=== PATIENT | male | born 1950 | race Asian ===

== ENCOUNTER 2020-09-07 10:56 | Inpatient (IN) | payer OTHER ==
[2020-09-07 12:28] LABS: BASO % 0.5 % (0-2.0); EOS % 0.1 % (0-4.5); HEMATOCRIT 31.9 % (35.4-49); HEMOGLOBIN 10.2 GM/dL (11.7-16.9); LYMPH % 9.3 % (8-40); MCH 24.4 pg (25.7-33.7); MCHC 31.9 g/dl (32.0-35.9); MEAN CELL VOLUME 76.6 fl (80-96); MEAN PLT VOLUME 8.7 fl (7.5-11.1); MONO % 36.1 % (3.8-10.2); PLATELET COUNT 81 10^3/uL (134-434); RBC 4.17 M/mm3 (4.00-5.60); RDW 27.9 % (11.9-15.9)
[2020-09-07 12:35] LABS: INR 1.12 (0.83-1.09); PROTHROMBIN TIME (PATIENT) 13.7 SEC (9.7-13.0)
[2020-09-07 12:37] LABS: ACTIVATED PTT 27.2 SECONDS (25.2-36.5)
[2020-09-07 12:51] LABS: CHLORIDE 106 mmol/L (98-107); SODIUM 140 mmol/L (136-145)
[2020-09-07 12:53] LABS: ANION GAP 10 MMOL/L (8-16); BLOOD UREA NITROGEN 25.6 mg/dL (7-18); CALCIUM 10.9 mg/dL (8.5-10.1); CO2 24 mmol/L (21-32)
[2020-09-07 12:54] LABS: ALBUMIN 2.3 g/dl (3.4-5.0); GLUCOSE,RANDOM 110 mg/dL (74-106); MAGNESIUM 2.1 mg/dL (1.8-2.4)
[2020-09-07 12:57] LABS: SGPT/ALT 16 U/L (13-61)
[2020-09-07 12:58] LABS: BILIRUBIN,TOTAL 0.4 mg/dL (0.2-1); TOT PROT 5.4 g/dl (6.4-8.2)
[2020-09-07 12:59] LABS: ANISOCYTOSIS 2+; MACROCYTOSIS 2+; OVALOCYTE 1+; PLATELET ESTIMATE DECREASED
[2020-09-07 13:00] LABS: ALK PHOS 98 U/L (45-117)
[2020-09-07 13:02] LABS: N-TERMINAL BNP 437.6 pg/ml (5-125); SGOT/AST 16 U/L (15-37)
[2020-09-07] MEDS ORDERED: PIPERACILLIN/TAZOB 4.5 GM 4.5 GM in DEXTROSE 5%-WATER 100 ML IVPB ONE (13:14)
[2020-09-07] MEDS ORDERED: VANCOMYCIN 1,000 MG in DEXTROSE 5%-WATER - 250 ML IVPB ONE (13:14)
[2020-09-07 13:51] LABS: URINE APPEARANCE CLEAR; URINE BILIRUBIN NEGATIVE (NEGATIVE); URINE COLOR YELLOW; URINE GLUCOSE (UA) 3+ (NEGATIVE); URINE KETONE NEGATIVE (NEGATIVE); URINE LEUK ESTERASE NEGATIVE (NEGATIVE); URINE NITRITE NEGATIVE (NEGATIVE); URINE PROTEIN NEGATIVE (NEGATIVE); URINE UROBILINOGEN 0.2 mg/dL (0.2-1.0)
[2020-09-07] MEDS ORDERED: PIPERACILLIN/TAZOB 4.5 GM 4.5 GM/100 ML BAG IVPB ONE (14:04)
[2020-09-07] MEDS ORDERED: VANCOMYCIN 1 GRAM (PRE-DOCKED) 1,000 MG/250 ML BAG IVPB ONE (14:05)
[2020-09-07] MEDS: INSULIN SLIDING SCALE (NOVOLOG) 1 VIAL SQ SCH ×2 (17:30→22:55)
[2020-09-07 21:17] LABS: URIC ACID 8.2 mg/dL (2.6-7.2)
[2020-09-07 21:18] LABS: PHOSPHOROUS 3.4 mg/dL (2.5-4.9)
[2020-09-07 21:19] LABS: LDH 259 U/L (87-246)
[2020-09-07 22:31] LABS: HEMOGLOBIN 10.2 GM/dL (11.7-16.9); MCH 24.6 pg (25.7-33.7); MEAN PLT VOLUME 9.4 fl (7.5-11.1); PLATELET COUNT 86 10^3/uL (134-434); RBC 4.16 M/mm3 (4.00-5.60); RDW 26.8 % (11.9-15.9); RETICULOCYTES 6.54 % (0.5-1.5); WHITE BLOOD COUNT 25.6 K/mm3 (4.0-10.0)
[2020-09-07] MEDS ORDERED: ATORVASTATIN CA 20 MG TABLET (FP) ONE (22:44)
[2020-09-07] MEDS ORDERED: GABAPENTIN 100 MG CAPSULE ONE (22:44)
[2020-09-07] MEDS: GABAPENTIN 300 MG CAPSULE PO SCH (22:50)
[2020-09-07] MEDS: ATORVASTATIN CA 20 MG TABLET (FP) PO SCH (22:50)
[2020-09-08] MEDS ORDERED: DEXTROSE 5%-WATER - 50 ML IVPB ONE ×3 (00:58→16:14)
[2020-09-08] MEDS ORDERED: PIPERACILLIN/TAZOBACTAM 3.375 GM VIAL IVPB ONE ×3 (00:58→16:14)
[2020-09-08] MEDS: PIPERACILLIN/TAZOB 3.375 GM 3.375 GM in DEXTROSE 5%-WATER - 50 ML IVPB SCH ×3 (01:26→18:49)
[2020-09-08] MEDS ORDERED: VANCOMYCIN 1 GM in D5W (PRE-DOCKED) 1,000 MG/250 ML IVPB SCH (03:00)
[2020-09-08 03:38] VITALS: BMI 19.8
[2020-09-08] MEDS: GABAPENTIN 300 MG CAPSULE PO SCH ×3 (06:24→21:33)
[2020-09-08] MEDS: INSULIN SLIDING SCALE (NOVOLOG) 1 VIAL SQ SCH ×4 (06:25→21:35)
[2020-09-08 06:52] LABS: HEMATOCRIT 30.5 % (35.4-49); HEMOGLOBIN 9.5 GM/dL (11.7-16.9); MCH 24.5 pg (25.7-33.7); MCHC 31.3 g/dl (32.0-35.9); MEAN CELL VOLUME 78.3 fl (80-96); MEAN PLT VOLUME 9.7 fl (7.5-11.1); PLATELET COUNT 71 10^3/uL (134-434); RBC 3.89 M/mm3 (4.00-5.60); RDW 27.4 % (11.9-15.9)
[2020-09-08 07:17] LABS: BLOOD UREA NITROGEN 26.9 mg/dL (7-18); CALCIUM 9.7 mg/dL (8.5-10.1)
[2020-09-08 07:18] LABS: MAGNESIUM 1.9 mg/dL (1.8-2.4)
[2020-09-08 07:20] LABS: CREATININE 1.3 mg/dL (0.55-1.3)
[2020-09-08 07:22] LABS: BILIRUBIN,TOTAL 0.8 mg/dL (0.2-1); TOT PROT 4.7 g/dl (6.4-8.2)
[2020-09-08] MEDS ORDERED: LOSARTAN POTASSIUM 50 MG TABLET PO SCH ×2 (10:00→13:25)
[2020-09-08] MEDS ORDERED: ENOXAPARIN NA (PORCINE) 40 MG/0.4 ML DISP.SYRIN SQ SCH (10:00)
[2020-09-08] MEDS ORDERED: ACETAMINOPHEN 325 MG TABLET (FP) PO PRN (10:41)
[2020-09-08] MEDS: CARVEDILOL 3.125 MG TABLET (FP) PO SCH ×2 (12:21→21:33)
[2020-09-08] MEDS: VANCOMYCIN 1 GM in D5W (PRE-DOCKED) 1,000 MG/250 ML IVPB SCH (13:03)
[2020-09-08 13:47] LABS: PH,URINE 5.5 (5.0-8.0); URINE APPEARANCE CLEAR; URINE BILIRUBIN NEGATIVE (NEGATIVE); URINE COLOR YELLOW; URINE GLUCOSE (UA) 3+ (NEGATIVE); URINE KETONE NEGATIVE (NEGATIVE); URINE LEUK ESTERASE NEGATIVE (NEGATIVE); URINE NITRITE NEGATIVE (NEGATIVE); URINE PROTEIN NEGATIVE (NEGATIVE); URINE UROBILINOGEN 0.2 mg/dL (0.2-1.0)
[2020-09-08] MEDS: ATORVASTATIN CA 20 MG TABLET (FP) PO SCH (21:33)
[2020-09-09] MEDS ORDERED: PIPERACILLIN/TAZOBACTAM 3.375 GM VIAL IVPB ONE ×3 (01:14→17:13)
[2020-09-09] MEDS ORDERED: DEXTROSE 5%-WATER - 50 ML IVPB ONE ×3 (01:14→17:13)
[2020-09-09] MEDS: PIPERACILLIN/TAZOB 3.375 GM 3.375 GM in DEXTROSE 5%-WATER - 50 ML IVPB SCH ×4 (01:16→17:39)
[2020-09-09] MEDS: VANCOMYCIN 1 GM in D5W (PRE-DOCKED) 1,000 MG/250 ML IVPB SCH (04:33)
[2020-09-09] MEDS: GABAPENTIN 300 MG CAPSULE PO SCH ×3 (06:02→21:37)
[2020-09-09] MEDS: INSULIN SLIDING SCALE (NOVOLOG) 1 VIAL SQ SCH ×4 (06:23→21:36)
[2020-09-09 07:29] LABS: BASO % 0.5 % (0-2.0); EOS % 0.1 % (0-4.5); HEMATOCRIT 29.1 % (35.4-49); HEMOGLOBIN 9.4 GM/dL (11.7-16.9); LYMPH % 10.6 % (8-40); MCH 25.2 pg (25.7-33.7); MCHC 32.4 g/dl (32.0-35.9); MEAN CELL VOLUME 77.7 fl (80-96); MEAN PLT VOLUME 10.4 fl (7.5-11.1); MONO % 29.7 % (3.8-10.2); NEUT % 59.1 % (42.8-82.8); PLATELET COUNT 72 10^3/uL (134-434); RBC 3.74 M/mm3 (4.00-5.60); RDW 27.1 % (11.9-15.9); WHITE BLOOD COUNT 19.5 K/mm3 (4.0-10.0)
[2020-09-09 07:54] LABS: MAGNESIUM 1.9 mg/dL (1.8-2.4)
[2020-09-09 07:56] LABS: CREATININE 1.2 mg/dL (0.55-1.3)
[2020-09-09] MEDS: CARVEDILOL 3.125 MG TABLET (FP) PO SCH ×2 (09:30→21:36)
[2020-09-09 09:31] LABS: ANISOCYTOSIS 2+; MACROCYTOSIS 1+; PLATELET ESTIMATE DECREASED
[2020-09-09] MEDS: LOSARTAN POTASSIUM 25 MG TABLET PO SCH (11:38)
[2020-09-09] MEDS: ATORVASTATIN CA 20 MG TABLET (FP) PO SCH (21:36)
[2020-09-10] MEDS ORDERED: DEXTROSE 5%-WATER - 50 ML IVPB ONE ×3 (01:15→17:27)
[2020-09-10] MEDS ORDERED: PIPERACILLIN/TAZOBACTAM 3.375 GM VIAL IVPB ONE ×3 (01:15→17:27)
[2020-09-10] MEDS: PIPERACILLIN/TAZOB 3.375 GM 3.375 GM in DEXTROSE 5%-WATER - 50 ML IVPB SCH ×3 (01:34→18:06)
[2020-09-10] MEDS: GABAPENTIN 300 MG CAPSULE PO SCH ×3 (06:33→21:23)
[2020-09-10] MEDS: INSULIN SLIDING SCALE (NOVOLOG) 1 VIAL SQ SCH ×4 (06:34→21:23)
[2020-09-10 06:43] LABS: BASO % 0.3 % (0-2.0); EOS % 0.2 % (0-4.5); HEMOGLOBIN 9.4 GM/dL (11.7-16.9); LYMPH % 10.1 % (8-40); MCH 24.9 pg (25.7-33.7); MCHC 32.4 g/dl (32.0-35.9); MEAN PLT VOLUME 8.7 fl (7.5-11.1); MONO % 28.4 % (3.8-10.2); PLATELET COUNT 60 10^3/uL (134-434); RBC 3.76 M/mm3 (4.00-5.60); RDW 26.3 % (11.9-15.9)
[2020-09-10 07:04] LABS: BLOOD UREA NITROGEN 25.8 mg/dL (7-18); CALCIUM 9.5 mg/dL (8.5-10.1); MAGNESIUM 1.6 mg/dL (1.8-2.4)
[2020-09-10 07:07] LABS: CREATININE 1.1 mg/dL (0.55-1.3); PHOSPHOROUS 3.3 mg/dL (2.5-4.9)
[2020-09-10] MEDS ORDERED: MAGNESIUM 1GM/D5W 100ML - 100 ML IVPB IVPB ONE (07:30)
[2020-09-10 10:12] LABS: ANISOCYTOSIS 1+; MACROCYTOSIS 0; PLATELET ESTIMATE DECREASED
[2020-09-10] MEDS: CARVEDILOL 3.125 MG TABLET (FP) PO SCH ×2 (10:22→21:23)
[2020-09-10] MEDS: LOSARTAN POTASSIUM 25 MG TABLET PO SCH (10:23)
[2020-09-10] MEDS: ENOXAPARIN NA (PORCINE) 40 MG/0.4 ML DISP.SYRIN SQ SCH (10:23)
[2020-09-10] MEDS: ATORVASTATIN CA 20 MG TABLET (FP) PO SCH (21:23)
[2020-09-11] MEDS ORDERED: PIPERACILLIN/TAZOBACTAM 3.375 GM VIAL IVPB ONE ×3 (01:45→18:03)
[2020-09-11] MEDS ORDERED: DEXTROSE 5%-WATER - 50 ML IVPB ONE ×3 (01:45→18:03)
[2020-09-11] MEDS: PIPERACILLIN/TAZOB 3.375 GM 3.375 GM in DEXTROSE 5%-WATER - 50 ML IVPB SCH ×3 (02:32→18:08)
[2020-09-11] MEDS: GABAPENTIN 300 MG CAPSULE PO SCH ×3 (05:46→21:17)
[2020-09-11] MEDS: INSULIN SLIDING SCALE (NOVOLOG) 1 VIAL SQ SCH ×4 (06:26→21:28)
[2020-09-11 07:13] LABS: BASO % 0.5 % (0-2.0); EOS % 0.2 % (0-4.5); HEMATOCRIT 27.9 % (35.4-49); HEMOGLOBIN 9.1 GM/dL (11.7-16.9); LYMPH % 9.1 % (8-40); MCH 25.2 pg (25.7-33.7); MCHC 32.6 g/dl (32.0-35.9); MEAN CELL VOLUME 77.2 fl (80-96); MEAN PLT VOLUME 8.5 fl (7.5-11.1); MONO % 28.5 % (3.8-10.2); NEUT % 61.7 % (42.8-82.8); PLATELET COUNT 62 10^3/uL (134-434); RBC 3.61 M/mm3 (4.00-5.60); RDW 25.8 % (11.9-15.9); WHITE BLOOD COUNT 19.9 K/mm3 (4.0-10.0)
[2020-09-11 07:30] LABS: BLOOD UREA NITROGEN 29.3 mg/dL (7-18); CALCIUM 9.8 mg/dL (8.5-10.1)
[2020-09-11 07:31] LABS: MAGNESIUM 1.8 mg/dL (1.8-2.4)
[2020-09-11] MEDS: LOSARTAN POTASSIUM 25 MG TABLET PO SCH (09:43)
[2020-09-11] MEDS: CARVEDILOL 3.125 MG TABLET (FP) PO SCH ×2 (09:43→21:17)
[2020-09-11] MEDS: ENOXAPARIN NA (PORCINE) 40 MG/0.4 ML DISP.SYRIN SQ SCH (09:43)
[2020-09-11 10:13] LABS: ANISOCYTOSIS 1+; MACROCYTOSIS 1+; PLATELET ESTIMATE DECREASED
[2020-09-11] MEDS: ATORVASTATIN CA 20 MG TABLET (FP) PO SCH (21:17)
[2020-09-12] MEDS ORDERED: DEXTROSE 5%-WATER - 50 ML IVPB ONE ×2 (01:58→09:46)
[2020-09-12] MEDS ORDERED: PIPERACILLIN/TAZOBACTAM 3.375 GM VIAL IVPB ONE ×2 (01:58→09:46)
[2020-09-12] MEDS: PIPERACILLIN/TAZOB 3.375 GM 3.375 GM in DEXTROSE 5%-WATER - 50 ML IVPB SCH ×2 (02:55→09:48)
[2020-09-12] MEDS ORDERED: PT OWN MED DRAWER 7, Y5N ONE (05:57)
[2020-09-12] MEDS: INSULIN SLIDING SCALE (NOVOLOG) 1 VIAL SQ SCH ×2 (06:03→12:07)
[2020-09-12] MEDS: GABAPENTIN 300 MG CAPSULE PO SCH (06:03)
[2020-09-12] MEDS: CARVEDILOL 3.125 MG TABLET (FP) PO SCH (09:47)
[2020-09-12] MEDS: LOSARTAN POTASSIUM 25 MG TABLET PO SCH (09:48)
[2020-09-12] MEDS: ENOXAPARIN NA (PORCINE) 40 MG/0.4 ML DISP.SYRIN SQ SCH (09:48)
[2020-09-12 11:18] VITALS: BP 112/54; PULSE 102
[2020-09-12 11:24] VITALS: TEMP 98.3
== END 2020-09-12 12:08 | disposition home or self-care (01) | DRG 180 ==
LOC: JER 10:56 → JERBED 14:51 → J2W 23:15
PROVIDERS: ATTEND Student in an Organized Health Care Education/Training Program
PROC: 0BBG3ZX Excision of Left Upper Lung Lobe, Percutaneous Approach, Diagnostic (ICD-10-PCS; principal; 2020-09-09)
DX: C78.01 Secondary malignant neoplasm of right lung (principal); J96.01 Acute respiratory failure with hypoxia; J18.8 Other pneumonia, unspecified organism; C91.10 Chronic lymphocytic leukemia of B-cell type not having achieved remission; N17.9 Acute kidney failure, unspecified; Z68.1 Body mass index [BMI] 19.9 or less, adult; I50.32 Chronic diastolic (congestive) heart failure; I11.0 Hypertensive heart disease with heart failure; C78.02 Secondary malignant neoplasm of left lung; E78.5 Hyperlipidemia, unspecified; E11.9 Type 2 diabetes mellitus without complications; R63.4 Abnormal weight loss; D69.6 Thrombocytopenia, unspecified; N40.0 Benign prostatic hyperplasia without lower urinary tract symptoms; R00.0 Tachycardia, unspecified
CPT/HCPCS: 36415; 70551-TC; 71045-TC-FY; 71046-TC-FY; 71275-TC; 77012-TC; 80048; 80053; 81003; 82728; 82962; 83010; 83036; 83540; 83550; 83615; 83735; 83880; 84100; 84155; 84156; 84157; 84165; 84436; 84443; 84484; 84550; 85025; 85027; 85045; 85379; 85384; 85610; 85730; 86738; 87040; 87086; 87899; 88305-TC; 88341-TC; 93005; 93010; 93306-TC; 93970-TC; 94761; 97116-GP; 97162-GP; 99285-25; C9803; Q9967; U0003; U0005

== ENCOUNTER 2020-09-15 17:26 | Inpatient (IN) | payer OTHER ==
[2020-09-15] MEDS ORDERED: ENOXAPARIN NA (PORCINE) 80 MG/0.8 ML DISP.SYRIN SQ SCH (18:30)
[2020-09-15 19:04] LABS: VENOUS BASE EXCESS -1.5 mmol/L (-2-2); VENOUS O2 SATURATION 75.8 % (70-80); VENOUS PCO2 41.1 mmHg (38-52); VENOUS PH 7.377 (7.310-7.410)
[2020-09-15 19:05] LABS: BASO % 0.3 % (0-2.0); HEMATOCRIT 29.4 % (35.4-49); HEMOGLOBIN 9.3 GM/dL (11.7-16.9); LYMPH % 6.7 % (8-40); MCH 25.3 pg (25.7-33.7); MCHC 31.4 g/dl (32.0-35.9); MEAN CELL VOLUME 80.5 fl (80-96); MEAN PLT VOLUME 10.3 fl (7.5-11.1); PLATELET COUNT 82 10^3/uL (134-434); RBC 3.66 M/mm3 (4.00-5.60); WHITE BLOOD COUNT 17.7 K/mm3 (4.0-10.0)
[2020-09-15] MEDS ORDERED: ENOXAPARIN NA (PORCINE) 60 MG/0.6 ML DISP.SYRIN SQ SCH (19:11)
[2020-09-15 19:12] LABS: INR 1.15 (0.83-1.09); PROTHROMBIN TIME (PATIENT) 14.1 SEC (9.7-13.0)
[2020-09-15 19:15] LABS: ACTIVATED PTT 27.1 SECONDS (25.2-36.5)
[2020-09-15 19:27] LABS: ALBUMIN 2.1 g/dl (3.4-5.0); BLOOD UREA NITROGEN 33.7 mg/dL (7-18); MAGNESIUM 1.8 mg/dL (1.8-2.4)
[2020-09-15 19:32] LABS: BILIRUBIN,TOTAL 0.4 mg/dL (0.2-1); TOT PROT 5.1 g/dl (6.4-8.2)
[2020-09-15 19:35] LABS: N-TERMINAL BNP 1239.5 pg/ml (5-125)
[2020-09-15 19:55] LABS: CALCIUM 11.9 mg/dL (8.5-10.1); CREATININE 1.3 mg/dL (0.55-1.3)
[2020-09-15 20:03] LABS: ANISOCYTOSIS 3+; MACROCYTOSIS 0
[2020-09-15] MEDS: SODIUM CHLORIDE 1,000 ML IV SCH (23:00)
[2020-09-16] MEDS ORDERED: ENOXAPARIN NA (PORCINE) 60 MG/0.6 ML DISP.SYRIN SQ ONE (01:45)
[2020-09-16 01:55] LABS: URINE APPEARANCE CLEAR; URINE BILIRUBIN NEGATIVE (NEGATIVE); URINE COLOR YELLOW; URINE GLUCOSE (UA) 3+ (NEGATIVE); URINE KETONE NEGATIVE (NEGATIVE); URINE LEUK ESTERASE NEGATIVE (NEGATIVE); URINE NITRITE NEGATIVE (NEGATIVE); URINE PROTEIN TRACE (NEGATIVE); URINE UROBILINOGEN 0.2 mg/dL (0.2-1.0)
[2020-09-16] MEDS: INSULIN SLIDING SCALE (NOVOLOG) 1 VIAL SQ SCH ×4 (06:05→21:54)
[2020-09-16 06:47] VITALS: BMI 20.4
[2020-09-16 08:07] LABS: BASO % 0.5 % (0-2.0); HEMATOCRIT 28.7 % (35.4-49); LYMPH % 6.4 % (8-40); MCH 25.5 pg (25.7-33.7); MCHC 31.4 g/dl (32.0-35.9); MEAN CELL VOLUME 81.3 fl (80-96); MEAN PLT VOLUME 10.5 fl (7.5-11.1); MONO % 27.2 % (3.8-10.2); NEUT % 65.9 % (42.8-82.8); PLATELET COUNT 79 10^3/uL (134-434); RBC 3.52 M/mm3 (4.00-5.60); RDW 25.8 % (11.9-15.9); WHITE BLOOD COUNT 19.4 K/mm3 (4.0-10.0)
[2020-09-16 08:15] LABS: ALBUMIN 1.8 g/dl (3.4-5.0); BLOOD UREA NITROGEN 28.4 mg/dL (7-18); CALCIUM 11.4 mg/dL (8.5-10.1); MAGNESIUM 1.8 mg/dL (1.8-2.4)
[2020-09-16 08:18] LABS: CREATININE 1.1 mg/dL (0.55-1.3)
[2020-09-16 08:19] LABS: PHOSPHOROUS 2.6 mg/dL (2.5-4.9)
[2020-09-16 08:20] LABS: BILIRUBIN,TOTAL 0.3 mg/dL (0.2-1); TOT PROT 4.7 g/dl (6.4-8.2)
[2020-09-16] MEDS ORDERED: PNEUMOC 13-VAL CONJ-DIP CRM/PF 0.5 ML DISP.SYRIN IM ONE (08:30)
[2020-09-16] MEDS: CARVEDILOL 3.125 MG TABLET (FP) PO SCH ×2 (09:46→21:54)
[2020-09-16] MEDS: LOSARTAN POTASSIUM 25 MG TABLET PO SCH (09:46)
[2020-09-16] MEDS: FAMOTIDINE 20 MG TABLET PO SCH (09:46)
[2020-09-16] MEDS: ASPIRIN COATED 81 MG TABLET.EC PO SCH (09:46)
[2020-09-16] MEDS: ENOXAPARIN NA (PORCINE) 40 MG/0.4 ML DISP.SYRIN SQ SCH (09:46)
[2020-09-16 10:27] LABS: ANISOCYTOSIS 1+; MACROCYTOSIS 1+; PLATELET ESTIMATE DECREASED
[2020-09-16] MEDS: GABAPENTIN 300 MG CAPSULE PO SCH ×2 (15:25→21:54)
[2020-09-16] MEDS: AMINO ACIDS/PROTEIN HYDROLYS 30 ML LIQUID.PKT PO SCH (17:02)
[2020-09-16] MEDS ORDERED: ALBUTEROL SO4 2.5/IPRATROPIUM 0.5 INH SOL 3 ML VIAL.NEB. NEB PRN (17:38)
[2020-09-16] MEDS: ATORVASTATIN CA 20 MG TABLET (FP) PO SCH (21:54)
[2020-09-16] MEDS: INSULIN (LEVEMIR) 100 UNITS/ML UNITS SQ SCH (21:56)
[2020-09-16] MEDS: SODIUM CHLORIDE 1,000 ML IV SCH (21:57)
[2020-09-17] MEDS: CALCITONIN - SALMON SYNTHETIC 400 UNIT/2 ML VIAL SQ SCH ×2 (00:11→18:10)
[2020-09-17] MEDS: GABAPENTIN 300 MG CAPSULE PO SCH (06:52)
[2020-09-17] MEDS: INSULIN SLIDING SCALE (NOVOLOG) 1 VIAL SQ SCH ×4 (06:54→21:09)
[2020-09-17 07:48] LABS: URIC ACID 7.2 mg/dL (2.6-7.2)
[2020-09-17] MEDS: AMINO ACIDS/PROTEIN HYDROLYS 30 ML LIQUID.PKT PO SCH ×2 (09:39→18:10)
[2020-09-17] MEDS: ENOXAPARIN NA (PORCINE) 40 MG/0.4 ML DISP.SYRIN SQ SCH (09:39)
[2020-09-17] MEDS: FAMOTIDINE 20 MG TABLET PO SCH (09:40)
[2020-09-17] MEDS: MULTIVITAMINS (DAILY MVI) TABLET (FP) PO SCH (09:40)
[2020-09-17] MEDS: ASPIRIN COATED 81 MG TABLET.EC PO SCH (09:40)
[2020-09-17] MEDS: CARVEDILOL 3.125 MG TABLET (FP) PO SCH ×2 (09:41→21:09)
[2020-09-17] MEDS: LOSARTAN POTASSIUM 25 MG TABLET PO SCH (09:54)
[2020-09-17 10:17] LABS: BASO % 0.6 % (0-2.0); EOS % 0.1 % (0-4.5); HEMATOCRIT 28.7 % (35.4-49); HEMOGLOBIN 8.8 GM/dL (11.7-16.9); LYMPH % 8.7 % (8-40); MCH 25.7 pg (25.7-33.7); MCHC 30.7 g/dl (32.0-35.9); MEAN CELL VOLUME 83.8 fl (80-96); MEAN PLT VOLUME 10.3 fl (7.5-11.1); MONO % 26.6 % (3.8-10.2); PLATELET COUNT 69 10^3/uL (134-434); RBC 3.43 M/mm3 (4.00-5.60); RDW 25.6 % (11.9-15.9); WHITE BLOOD COUNT 17.2 K/mm3 (4.0-10.0)
[2020-09-17 10:34] LABS: ALBUMIN 1.8 g/dl (3.4-5.0); BLOOD UREA NITROGEN 19.4 mg/dL (7-18)
[2020-09-17 10:35] LABS: MAGNESIUM 1.4 mg/dL (1.8-2.4)
[2020-09-17 10:37] LABS: CREATININE 0.7 mg/dL (0.55-1.3)
[2020-09-17 10:39] LABS: BILIRUBIN,TOTAL 0.4 mg/dL (0.2-1); TOT PROT 4.5 g/dl (6.4-8.2)
[2020-09-17 10:48] LABS: CALCIUM 9.3 mg/dL (8.5-10.1)
[2020-09-17 10:53] LABS: ANISOCYTOSIS 2+; MACROCYTOSIS 0; PLATELET ESTIMATE DECREASED
[2020-09-17] MEDS: GABAPENTIN 400 MG CAPSULE PO SCH ×2 (14:09→21:09)
[2020-09-17] MEDS ORDERED: PT OWN MED DRAWER 7, Y5N ONE (16:42)
[2020-09-17] MEDS ORDERED: FUROSEMIDE 40 MG TABLET (FP) PO ONE (17:09)
[2020-09-17] MEDS: ATORVASTATIN CA 20 MG TABLET (FP) PO SCH (21:09)
[2020-09-17] MEDS: INSULIN (LEVEMIR) 100 UNITS/ML UNITS SQ SCH (21:10)
[2020-09-18] MEDS: GABAPENTIN 400 MG CAPSULE PO SCH ×2 (06:15→13:12)
[2020-09-18] MEDS: INSULIN SLIDING SCALE (NOVOLOG) 1 VIAL SQ SCH ×3 (06:15→17:06)
[2020-09-18 07:22] LABS: ALBUMIN 1.7 g/dl (3.4-5.0); BLOOD UREA NITROGEN 23.4 mg/dL (7-18); CALCIUM 8.3 mg/dL (8.5-10.1)
[2020-09-18 07:23] LABS: MAGNESIUM 1.2 mg/dL (1.8-2.4)
[2020-09-18 07:26] LABS: CREATININE 0.6 mg/dL (0.55-1.3)
[2020-09-18 07:27] LABS: BILIRUBIN,TOTAL 0.6 mg/dL (0.2-1); TOT PROT 4.4 g/dl (6.4-8.2)
[2020-09-18 07:59] LABS: BASO % 0.4 % (0-2.0); EOS % 0.1 % (0-4.5); HEMATOCRIT 28.3 % (35.4-49); HEMOGLOBIN 8.9 GM/dL (11.7-16.9); LYMPH % 8.3 % (8-40); MCH 25.8 pg (25.7-33.7); MCHC 31.3 g/dl (32.0-35.9); MEAN CELL VOLUME 82.4 fl (80-96); MEAN PLT VOLUME 10.4 fl (7.5-11.1); MONO % 26.7 % (3.8-10.2); NEUT % 64.5 % (42.8-82.8); PLATELET COUNT 53 10^3/uL (134-434); RBC 3.44 M/mm3 (4.00-5.60); RDW 24.5 % (11.9-15.9); WHITE BLOOD COUNT 16.1 K/mm3 (4.0-10.0)
[2020-09-18] MEDS ORDERED: POTASSIUM CHLORIDE TABS 20 MEQ TABLET.ER (FP) PO ONE (08:15)
[2020-09-18] MEDS ORDERED: MAGNESIUM OXIDE 400 MG TABLET (FP) PO ONE (08:16)
[2020-09-18] MEDS: AMINO ACIDS/PROTEIN HYDROLYS 30 ML LIQUID.PKT PO SCH ×2 (09:02→17:09)
[2020-09-18] MEDS: ENOXAPARIN NA (PORCINE) 40 MG/0.4 ML DISP.SYRIN SQ SCH (09:03)
[2020-09-18] MEDS: MULTIVITAMINS (DAILY MVI) TABLET (FP) PO SCH (09:04)
[2020-09-18] MEDS: ASPIRIN COATED 81 MG TABLET.EC PO SCH (09:05)
[2020-09-18] MEDS: FAMOTIDINE 20 MG TABLET PO SCH (09:05)
[2020-09-18] MEDS: MAGNESIUM SULF 50% (8.12 MEQ/2 ML-1 GM VIAL) IVPB SCH ×2 (09:09→12:06)
[2020-09-18] MEDS: CARVEDILOL 3.125 MG TABLET (FP) PO SCH (09:20)
[2020-09-18 10:22] LABS: ANISOCYTOSIS 1+; MACROCYTOSIS 0; OVALOCYTE 1+; PLATELET ESTIMATE DECREASED; TEAR DROP CELLS 1+
[2020-09-18] MEDS: LOSARTAN POTASSIUM 25 MG TABLET PO SCH (10:23)
[2020-09-18] MEDS ORDERED: ALLOPURINOL 300 MG TABLET (FP) PO SCH (11:45)
[2020-09-18] MEDS ORDERED: PT OWN MED DRAWER 7, Y5N ONE (11:57)
[2020-09-18] MEDS ORDERED: INSULIN (NOVOLOG) ASPART 100 UNITS/ML 10ML VIAL ONE ×2 (11:58→17:03)
[2020-09-18 14:17] VITALS: BP 109/53; PULSE 104; TEMP 98.6
[2020-09-22 14:08] LABS: HEP B CORE AB, TOT Negative (Negative)
== END 2020-09-18 18:00 | disposition short-term general hospital (02) | DRG 840 ==
LOC: JER 17:26 → JERBED 22:02 → J7W 09-16 05:11
PROVIDERS: ADMIT Hospitalist; ATTEND Nurse Practitioner Acute Care
DX: C85.12 Unspecified B-cell lymphoma, intrathoracic lymph nodes (principal); G93.41 Metabolic encephalopathy; C94.6 Myelodysplastic disease, not elsewhere classified; C78.00 Secondary malignant neoplasm of unspecified lung; I50.32 Chronic diastolic (congestive) heart failure; I13.0 Hypertensive heart and chronic kidney disease with heart failure and stage 1 through stage 4 chronic kidney disease, or unspecified chronic kidney disease; J96.11 Chronic respiratory failure with hypoxia; C78.7 Secondary malignant neoplasm of liver and intrahepatic bile duct; E11.9 Type 2 diabetes mellitus without complications; I25.10 Atherosclerotic heart disease of native coronary artery without angina pectoris; E78.5 Hyperlipidemia, unspecified; E11.22 Type 2 diabetes mellitus with diabetic chronic kidney disease; N18.9 Chronic kidney disease, unspecified; R62.7 Adult failure to thrive; N40.0 Benign prostatic hyperplasia without lower urinary tract symptoms; Z79.4 Long term (current) use of insulin; C61 Malignant neoplasm of prostate; F03.90 Unspecified dementia, unspecified severity, without behavioral disturbance, psychotic disturbance, mood disturbance, and anxiety; D69.6 Thrombocytopenia, unspecified; D64.9 Anemia, unspecified; E83.52 Hypercalcemia
CPT/HCPCS: 36415; 70450-TC; 71045-TC-FY; 78306-TC; 80053; 81003; 82550; 82803; 82955; 82962; 83615; 83735; 83880; 84100; 84484; 84550; 85025; 85610; 85730; 86704; 86706; 86707; 86708; 86709; 86803; 87040; 87086; 87340; 88300-TC; 90670; 93005; 93010; 97116-GP; 97161-GP; 99285-25; A9503; C9803; U0003; U0005